=== PATIENT | male | born 1995 | race American Indian/Alaskan Native ===

== ENCOUNTER 2019-05-03 18:56 | Emergency (ER) | payer SELFPAY ==
--- NOTE | 2019-05-03 20:09 | Event Note ---
ED Screening Note ED Screening Note: states his girlfriend has chlamydia +dysuria x 1 week no penile discharge no testicular swelling or pain This initial assessment/diagnostic orders/clinical plan/treatment(s) is/are subject to change based on patients health status, clinical progression and re- assessment by fellow clinical providers in the ED. Further treatment and workup at subsequent clinical providers discretion. Patient/guardian urged not to elope from the ED as their condition may be serious if not clinically assessed and managed. Initial orders include: UA, G/C
[2019-05-03 20:11] VITALS: BP 113/62
[2019-05-03] MEDS ORDERED: ZITHROMAX PO STA (21:59)
[2019-05-03] MEDS ORDERED: XYLOCAINE 1% MPF 5 mL INFILTRATI ONE (21:59)
[2019-05-03] MEDS ORDERED: ROCEPHIN IM STA (21:59)
--- NOTE | 2019-05-03 22:03 | Emergency Department Report ---
ED Male HPI - General Chief complaint: Urogenital-Male Stated complaint: STD CHECK Time Seen by Provider: 05/03/19 20:06 Source: patient Mode of arrival: Ambulatory Limitations: No Limitations - History of Present Illness Initial comments: 23-year-old male reports his girlfriend's advised him that should he gave her chlamydia. States that he has been asymptomatic and reports no dysuria, hematuria, penile discharge and wanted to be evaluated since she didn't show up positive. He reports no stomach pain or testicular pain Severity scale (0 -10): 0 Improves with: none Worsens with: none new medication denies other symptoms - Related Data Previous Rx's Medication Instructions Recorded Last Taken Type Hydrocodone Bit/Acetaminophen 1 each PO Q8HR PRN #10 tablet 07/25/13 Unknown Rx [Lortab 5-500 Tablet] Sulfamethoxazole/Trimethoprim 1 each PO BID 7 Days tablet 07/25/13 Unknown Rx [Bactrim DS] Allergies Allergy/AdvReac Type Severity Reaction Status Date / Time No Known Allergies Allergy Verified 05/03/19 18:58 ED Review of Systems ROS: Stated complaint: STD CHECK Other details as noted in HPI Comment: All other systems reviewed and negative ED Past Medical Hx - Past Medical History Previous Medical History?: No - Surgical History Past Surgical History?: Yes Hx Appendectomy: Yes - Social History Smoking Status: Current Every Day Smoker Substance Use Type: Marijuana - Medications Home Medications: Home Medications Medication Instructions Recorded Confirmed Last Taken Type Hydrocodone Bit/Acetaminophen 1 each PO Q8HR PRN #10 tablet 07/25/13 Unknown Rx [Lortab 5-500 Tablet] Sulfamethoxazole/Trimethoprim 1 each PO BID 7 Days tablet 07/25/13 Unknown Rx [Bactrim DS] ED Physical Exam - General Limitations: No Limitations General appearance: alert, in no apparent distress - Head Head exam: Present: atraumatic, normocephalic - Eye Eye exam: Present: normal appearance - ENT ENT exam: Present: mucous membranes moist - Neck Neck exam: Present: normal inspection - Respiratory Respiratory exam: Present: normal lung sounds bilaterally. Absent: respiratory distress - Cardiovascular Cardiovascular Exam: Present: regular rate, normal rhythm. Absent: systolic murmur, diastolic murmur, rubs, gallop - GI/Abdominal GI/Abdominal exam: Present: soft, normal bowel sounds - Rectal Rectal exam: Present: deferred - Extremities Exam Extremities exam: Present: normal inspection - Back Exam Back exam: Present: normal inspection - Neurological Exam Neurological exam: Present: alert, oriented X3 - Psychiatric Psychiatric exam: Present: normal affect, normal mood - Skin Skin exam: Present: warm, dry, intact, normal color. Absent: rash ED Course Vital Signs 05/03/19 20:08 Temperature 98.6 F Pulse Rate 52 L Respiratory 20 Rate Blood Pressure 113/62 [Right] O2 Sat by Pulse 99 Oximetry Critical care attestation.: If time is entered above; I have spent that time in minutes in the direct care of this critically ill patient, excluding procedure time. ED Disposition Clinical Impression: Potential exposure to STD Disposition: DC-01 TO HOME OR SELFCARE Is pt being admited?: No Does the pt Need Aspirin: No Condition: Stable Instructions: Safe Sex (ED), Sexually Transmitted Diseases (ED), Chlamydia Infection (ED) Additional Instructions: Your gonorrhea/chlamydia results will be available in about 48 hours time contacted if positive results. Please follow-up date. Medical records to receive a copy of your STD profile. Please follow-up with the local health care Department for full STD panel Referrals: SHAR THOMAS MD [Primary Care Provider] - 3-5 Days [facility] [Outside] - 3-5 Days
[2019-05-03 22:41] LABS: Bilirubin,Urine NEG (Negative); Blood,Urine NEG (Negative); Color,Urine Yellow (Yellow); Mucus,Urine 3+ /HPF; Protein,Urine <15 mg/dL mg/dL (Negative)
== END 2019-05-03 22:42 | disposition home or self-care (01) ==
LOC: ED 18:56
DX: R30.0 Dysuria (principal)
CPT/HCPCS: 81001; 96372; 99283; J0696

== ENCOUNTER 2020-11-15 04:12 | Emergency (ER) | payer SELFPAY ==
--- NOTE | 2020-11-15 04:21 | Event Note ---
ED Screening Note ED Screening Note: lower abd pain began at 4PM +n/v states he had a normal BM yesterday he states his pain feels like when he had appendicitis and had to have an appendectomy +tobacco use no medication allergies This initial assessment/diagnostic orders/clinical plan/treatment(s) is/are subject to change based on patients health status, clinical progression and re- assessment by fellow clinical providers in the ED. Further treatment and workup at subsequent clinical providers discretion. Patient/guardian urged not to elope from the ED as their condition may be serious if not clinically assessed and managed. Initial orders include: labs, UA
[2020-11-15 05:04] LABS: Bilirubin,Urine NEG (Negative); Blood,Urine NEG (Negative); Color,Urine Yellow (Yellow); Mucus,Urine FEW /HPF; Protein,Urine <15 mg/dL mg/dL (Negative)
[2020-11-15] MEDS ORDERED: ONDANSETRON 4 MG/2 ML INJ IV ONE (05:26)
[2020-11-15] MEDS ORDERED: SODIUM CHLORIDE 0.9% 1000 ML 1,000 ML IV ONE (05:26)
[2020-11-15] MEDS ORDERED: MORPHINE 4 MG/1 ML INJ IV ONE (05:26)
[2020-11-15 06:02] LABS: Basophils # (Auto) 0.1 K/mm3 (0.0-0.1); Basophils % (Auto) 0.7 % (0.0-1.8); Eosinophils # (Auto) 0.1 K/mm3 (0.0-0.4); Eosinophils % (Auto) 0.6 % (0.0-4.3); Hematocrit 43.1 % (35.5-45.6); Hemoglobin 14.5 gm/dl (11.8-15.2); Lymphocytes # (Auto) 2.2 K/mm3 (1.2-5.4); Lymphocytes % (Auto) 22.1 % (13.4-35.0); Mean Corpuscular HGB Conc 34 % (32-34); Mean Corpuscular Volume 94 fl (84-94); Monocytes # (Auto) 0.4 K/mm3 (0.0-0.8); Monocytes % (Auto) 4.5 % (0.0-7.3); Red Blood Count 4.57 M/mm3 (3.65-5.03); Red Cell Distribution Width 13.5 % (13.2-15.2)
[2020-11-15 06:16] LABS: Platelet Count 202 K/mm3 (140-440)
[2020-11-15 06:19] LABS: Alanine Aminotransferase 12 units/L (7-56); Albumin 4.7 g/dL (3.9-5); BUN/Creatinine Ratio 8; Blood Urea Nitrogen 7 mg/dL (9-20); Hemolysis Index 12
[2020-11-15] MEDS ORDERED: HYOSCYAMINE SUBL 0.125 MG TAB SL ONE (06:33)
--- NOTE | 2020-11-15 07:06 | Emergency Department Report ---
ED Abdominal Pain HPI - General Chief Complaint: Abdominal Pain Stated Complaint: STOMACH PAIN Time Seen by Provider: 11/15/20 04:20 Source: patient Mode of arrival: Ambulatory Limitations: No Limitations - History of Present Illness Initial Comments: 24-year-old male with previous appendectomy presents the hospital complaining of abdominal pain since 4 PM yesterday. Patient complains of a severe cramping abdominal pain worse in the mid and epigastric area. Pain worse with palpation. No alleviating factors. Has associated nausea and vomiting. No complaints of fever, hematemesis, hematochezia, melena, diarrhea, or dysuria. States pain feels similar to previous appendicitis Severity scale (0 -10): 10 - Related Data Previous Rx's Medication Instructions Recorded Last Taken Type Hydrocodone Bit/Acetaminophen 1 each PO Q8HR PRN #10 tablet 07/25/13 Unknown Rx [Lortab 5-500 Tablet] Sulfamethoxazole/Trimethoprim 1 each PO BID 7 Days tablet 07/25/13 Unknown Rx [Bactrim DS] Famotidine [Pepcid] 20 mg PO BID #20 tablet 11/15/20 Unknown Rx Hyoscyamine Subl [Levsin Sl 0.125 0.125 mg SL Q6HR PRN #15 tab 11/15/20 Unknown Rx TAB] Ondansetron [Zofran Odt] 4 mg PO Q8HR PRN #20 tab.rapdis 11/15/20 Unknown Rx traMADoL [Ultram 50 MG tab] 50 mg PO Q6HR PRN #10 tablet 11/15/20 Unknown Rx Allergies Allergy/AdvReac Type Severity Reaction Status Date / Time No Known Allergies Allergy Verified 05/03/19 18:58 ED Review of Systems ROS: Stated complaint: STOMACH PAIN Other details as noted in HPI Comment: All other systems reviewed and negative ED Past Medical Hx - Past Medical History Previous Medical History?: No - Surgical History Past Surgical History?: Yes Hx Appendectomy: Yes - Social History Smoking Status: Current Every Day Smoker Substance Use Type: None - Medications Home Medications: Home Medications Medication Instructions Recorded Confirmed Last Taken Type Hydrocodone Bit/Acetaminophen 1 each PO Q8HR PRN #10 tablet 07/25/13 Unknown Rx [Lortab 5-500 Tablet] Sulfamethoxazole/Trimethoprim 1 each PO BID 7 Days tablet 07/25/13 Unknown Rx [Bactrim DS] Famotidine [Pepcid] 20 mg PO BID #20 tablet 11/15/20 Unknown Rx Hyoscyamine Subl [Levsin Sl 0.125 0.125 mg SL Q6HR PRN #15 tab 11/15/20 Unknown Rx TAB] Ondansetron [Zofran Odt] 4 mg PO Q8HR PRN #20 tab.rapdis 11/15/20 Unknown Rx traMADoL [Ultram 50 MG tab] 50 mg PO Q6HR PRN #10 tablet 11/15/20 Unknown Rx ED Physical Exam - General Limitations: No Limitations - Other Other exam information: General: No acute distress Head: Atraumatic Eyes: normal appearance ENT: Moist mucous membranes Neck: Normal appearance, no midline tenderness Chest: Clear to auscultation bilaterally CV: Regular rate and rhythm Abdomen: Soft, normal bowel sounds, generalized tenderness greatest in the mid and epigastric abdominal area. No rebound or guarding Back: Normal inspection Extremity: Normal inspection, full range of motion Neuro: Alert O x 3, no facial asymmetry, speech clear, no gross motor sensory deficit Psych: Appropriate behavior Skin: No rash ED Course Vital Signs 11/15/20 11/15/20 11/15/20 04:19 06:18 08:37 Temperature 97.7 F Pulse Rate 53 L 55 L Respiratory 16 18 16 Rate Blood Pressure 136/86 Blood Pressure 86/59 [Right] O2 Sat by Pulse 100 100 Oximetry - Reevaluation(s) Reevaluation #1: 11/15/20 07:17 Patient reports pain was 8/10 in intensity prior to receiving ED meds including morphine, Zofran, normal saline. Pain was a 5/10 upon my examination after receiving treatment Reevaluation #2: 11/15/20 09:38 repeat bp 112/67 prior to d/c. Pt denies feeling dizzy ED Medical Decision Making - Lab Data Result diagrams: 11/15/20 05:41 11/15/20 05:41 Lab Results 11/15/20 11/15/20 11/15/20 Range/Units 04:30 05:41 05:41 WBC 10.0 (4.5-11.0) K/mm3 RBC 4.57 (3.65-5.03) M/mm3 Hgb 14.5 (11.8-15.2) gm/dl Hct 43.1 (35.5-45.6) % MCV 94 (84-94) fl MCH 32 (28-32) pg MCHC 34 (32-34) % RDW 13.5 (13.2-15.2) % Plt Count 202 (140-440) K/mm3 Lymph % (Auto) 22.1 (13.4-35.0) % [place] % (Auto) 4.5 (0.0-7.3) % Eos % (Auto) 0.6 (0.0-4.3) % Baso % (Auto) 0.7 (0.0-1.8) % Lymph # (Auto) 2.2 (1.2-5.4) K/mm3 [place] # (Auto) 0.4 (0.0-0.8) K/mm3 Eos # (Auto) 0.1 (0.0-0.4) K/mm3 Baso # (Auto) 0.1 (0.0-0.1) K/mm3 Seg Neutrophils % 72.1 H (40.0-70.0) % Seg Neutrophils # 7.2 (1.8-7.7) K/mm3 Sodium 139 (137-145) mmol/L Potassium 3.8 (3.6-5.0) mmol/L Chloride 102.2 (98-107) mmol/L Carbon Dioxide 25 (22-30) mmol/L Anion Gap 16 mmol/L BUN 7 L (9-20) mg/dL Creatinine 0.9 (0.8-1.3) mg/dL Estimated GFR > 60 ml/min BUN/Creatinine Ratio 8 % Glucose 104 H (75-100) mg/dL Calcium 10.0 (8.4-10.2) mg/dL Total Bilirubin 1.00 (0.1-1.2) mg/dL AST 20 (5-40) units/L ALT 12 (7-56) units/L Alkaline Phosphatase 72 (35-129) units/L Total Protein 7.4 (6.3-8.2) g/dL Albumin 4.7 (3.9-5) g/dL Albumin/Globulin Ratio 1.7 % Lipase 20 (13-60) units/L Urine Color Yellow (Yellow) Urine Turbidity Clear (Clear) Urine pH 6.0 (5.0-7.0) Ur Specific [place] 1.019 (1.003-1.030) Urine Protein <15 mg/dl (Negative) mg/dL Urine Glucose (UA) Neg (Negative) mg/dL Urine Ketones Neg (Negative) mg/dL Urine Blood Neg (Negative) Urine Nitrite Neg (Negative) Urine Bilirubin Neg (Negative) Urine Urobilinogen 2.0 (<2.0) mg/dL Ur Leukocyte Esterase Neg (Negative) Urine WBC (Auto) 3.0 (0.0-6.0) /HPF Urine RBC (Auto) 1.0 (0.0-6.0) /HPF Urine Mucus Few /HPF - Radiology Data Radiology results: report reviewed CT ABDOMEN AND PELVIS WITH CONTRAST INDICATION / CLINICAL INFORMATION: Mid and upper abdominal pain, nausea and vomiting for one day. TECHNIQUE: Axial CT images were obtained through the abdomen and pelvis after 100 cc of Omnipaque [address] scans at this location are performed using CT dose reduction for ALARA by means of automated exposure control. COMPARISON: None available. FINDINGS: LOWER CHEST: No significant abnormality. LIVER: No significant abnormality. GALLBLADDER: No significant abnormality. BILE DUCTS: No significant abnormality. PANCREAS: No significant abnormality. SPLEEN: No significant abnormality. ADRENALS: No significant abnormality. RIGHT KIDNEY and URETER: No significant abnormality. LEFT KIDNEY and URETER: No significant abnormality. STOMACH and SMALL BOWEL: No significant abnormality. COLON: No significant abnormality. APPENDIX: Not seen. There are surgical clips in the right lower quadrant suggesting prior appendectomy. PERITONEUM: No free fluid. No free air. No fluid collection. LYMPH NODES: No significant adenopathy. AORTA and ARTERIES: No significant abnormality. IVC and VEINS: No significant abnormality. URINARY BLADDER: No significant abnormality. REPRODUCTIVE ORGANS: No significant abnormality. ADDITIONAL FINDINGS: None. SKELETAL SYSTEM: No acute abnormality. IMPRESSION: 1. There is no obstruction, inflammation, or free air. There are no abnormal fluid collections. - Medical Decision Making 23-year-old male presents to the hospital abdominal cramps with nausea vomiting. CT without acute findings. Labs and urine unremarkable. Feel better with ED treatment included morphine, Zofran, normal saline, and Levsin. Tolerating PO intake prior to d/c. Diagnosis of nausea vomiting/abdominal pain likely secondary to viral gastroenteritis. Will be discharged home with meds for symptomatic treatment and follow-up t Critical Care Time: No Critical care attestation.: If time is entered above; I have spent that time in minutes in the direct care of this critically ill patient, excluding procedure time. ED Disposition Clinical Impression: Vomiting, Abdominal cramps Disposition: TO HOME OR SELFCARE Is pt being admited?: No Does the pt Need Aspirin: No Condition: Stable Instructions: Vomiting, Adult Additional Instructions: Take the medication as prescribed. Follow-up with your doctor or doctor/clinic provided. Return if symptoms worsen as indicated by your discharge instructions. Prescriptions: Hyoscyamine Subl [Levsin Sl 0.125 TAB] 0.125 mg SL Q6HR PRN #15 tab PRN Reason: Pain , Severe (7-10) Famotidine [Pepcid] 20 mg PO BID #20 tablet traMADoL [Ultram 50 MG tab] 50 mg PO Q6HR PRN #10 tablet PRN Reason: Pain Ondansetron [Zofran Odt] 4 mg PO Q8HR PRN #20 tab.rapdis PRN Reason: Nausea And Vomiting Referrals: PRIMARY CAREMD [Primary Care Provider] - 3-5 Days [facility] [Provider Group] - 3-5 Days CADE MARK MD [Staff Physician] - 3-5 Days Time of Disposition: 09:39
--- NOTE | 2020-11-15 08:03 | Cat Scan Report ---
CT ABDOMEN AND PELVIS WITH CONTRAST INDICATION / CLINICAL INFORMATION: Mid and upper abdominal pain, nausea and vomiting for one day. TECHNIQUE: Axial CT images were obtained through the abdomen and pelvis after 100 cc of Omnipaque [address] All [address] scans at this location are performed using CT dose reduction for ALARA by means of automat ed exposure control. COMPARISON: None available. FINDINGS: LOWER CHEST: No significant abnormality. LIVER: No significant abnormality. GALLBLADDER: No significant abnormality. BILE DUCTS: No significant abnormality. PANCREAS: No significant abnormality. SPLEEN: No significant abnormality. ADRENALS: No significant abnormality. RIGHT KIDNEY and URETER: No significant abnormality. LEFT KIDNEY and URETER: No significant abnormality. STOMACH and SMALL BOWEL: No significant abnormality. COLON: No significant abnormality. APPENDIX: Not seen. There are surgical clips in the right lower quadrant suggesting prior appendectom y. PERITONEUM: No free fluid. No free air. No fluid collection. LYMPH NODES: No significant adenopathy. AORTA and ARTERIES: No significant abnormality. IVC and VEINS: No significant abnormality. URINARY BLADDER: No significant abnormality. REPRODUCTIVE ORGANS: No significant abnormality. ADDITIONAL FINDINGS: None. SKELETAL SYSTEM: No acute abnormality. IMPRESSION: 1. There is no obstruction, inflammation, or free air. There are no abnormal fluid collections. Signer Name: Jorge Luis Chavez MD Signed: 11/15/2020 7:58 AM Workstation Name: [id number]
[2020-11-15 09:44] VITALS: BP 112/67
== END 2020-11-15 09:42 | disposition home or self-care (01) ==
LOC: ED 04:12
DX: R11.10 Vomiting, unspecified (principal); R10.9 Unspecified abdominal pain; F17.200 Nicotine dependence, unspecified, uncomplicated; Z90.49 Acquired absence of other specified parts of digestive tract; Z79.899 Other long term (current) drug therapy
CPT/HCPCS: 36415; 74177; 80053; 81001; 83690; 85025; 96361; 96374; 96375; 99284; J2270; J2405; J7030; Q9967